=== PATIENT | male | born 1940 | race Caucasian/White ===

== ENCOUNTER 2017-11-18 15:09 | Emergency (ER) | payer MEDICARE | END 2017-11-18 16:41 | disposition home or self-care (01) | LOC: ERS 15:09 | DX: N48.89 Other specified disorders of penis (principal); E78.5 Hyperlipidemia, unspecified; F32.9 Major depressive disorder, single episode, unspecified | CPT/HCPCS: 99283 ==

== ENCOUNTER 2022-04-07 20:16 | Inpatient (IN) | payer MEDICARE ==
[2022-04-07 20:46] LABS: #Eosinphils 0.4 thou/uL (0.0-0.7); #Lymphocytes 1.2 thou/uL (1.20-3.40); #Monocytes 0.6 thou/uL (0.11-0.59); #Neutrophils 2.3 thou/uL (1.40-6.50); %Basophils 0.3 % (0.0-1.0); %Eosinophils 8.9 % (0.0-10.0); %Lymphocytes 26.6 % (21.0-51.0); %Monocytes 13.3 % (0.0-10.0); %Neutrophils 50.9 % (42.0-75.0); Hemoglobin 14.5 g/dL (14.0-18.0); Mean Corpuscular HGB CONC 32.9 g/dL (32.0-36.0); Mean Corpuscular Hemoglobin 29.8 pg (27.0-31.0); Mean Corpuscular Volume 90.5 fl (78.0-98.0); Mean Platelet Volume 7.6 fL (7.4-10.4); Platelet Count 301 10x3/uL (130-400); RBC Distribution Width 12.4 % (11.5-14.5); Red Blood Cell (RBC) Count 4.88 mill/uL (4.70-6.10); White Blood Cell (WBC) Count 4.4 10x3/uL (4.8-10.8)
[2022-04-07 21:24] LABS: ALT (SGPT) 13 U/L (8-55); AST (SGOT) 20 U/L (5-34); Albumin 4.1 g/dL (3.4-4.8); Alkaline Phosphatase 70 U/L (40-110); Anion Gap 15 mmol/L (10-20); BUN (Urea Nitrogen) 21 mg/dL (8.4-25.7); Bilirubin, Total 0.4 mg/dL (0.2-1.2); Calc. Creatinine Clearance 0 mL/min (70-130); Calcium 9.1 mg/dL (7.8-10.44); Carbon Dioxide 21 mmol/L (23-31); Chloride 105 mmol/L (98-107); Estimated GFR 87; Globulin 3.3 g/dL (2.4-3.5); Glucose 127 mg/dL (83-110); Potassium 3.9 mmol/L (3.5-5.1); Protein, Total 7.4 g/dL (5.8-8.1); Sodium 137 mmol/L (136-145)
[2022-04-07 21:27] LABS: CKMB 2.8 ng/mL (0-6.6)
[2022-04-07] MEDS ORDERED: Aspirin Chewable 81 MG TAB ONE (22:24)
[2022-04-07] MEDS ORDERED: Nitroglycerin 0.4 MG TAB (25 Tab Bottle) SL PRN (22:47)
[2022-04-07] MEDS ORDERED: Furosemide 20 MG/2 ML VIAL SLOW IVP SCH (23:00)
[2022-04-07] MEDS ORDERED: Enoxaparin Sodium 60 MG/0.6 ML SYRINGE SC SCH (23:30)
[2022-04-08 01:20] LABS: Troponin I 0.713 ng/mL (< 0.028)
[2022-04-08 04:54] LABS: Band 2 % (5-11); Eosinophils 7 % (0-10); Hemoglobin 14.4 g/dL (14.0-18.0); Lymphocytes 16 % (21-51); MDiff Complete? YES; Mean Corpuscular HGB CONC 32.5 g/dL (32.0-36.0); Mean Corpuscular Volume 92.4 fl (78.0-98.0); Mean Platelet Volume 7.4 fL (7.4-10.4); Monocytes 15 % (0-10); Neutrophil 55 % (42-75); Platelet Count 303 10x3/uL (130-400); Platelet Morphology Comment Appears Adequate; RBC Distribution Width 12.4 % (11.5-14.5); RBC Morphology Normal; Reactive Lymphocytes 5 % (0-10); White Blood Cell (WBC) Count 4.8 10x3/uL (4.8-10.8)
[2022-04-08 05:16] LABS: ALT (SGPT) 12 U/L (8-55); AST (SGOT) 23 U/L (5-34); Albumin 3.8 g/dL (3.4-4.8); Alkaline Phosphatase 66 U/L (40-110); Anion Gap 15 mmol/L (10-20); BUN (Urea Nitrogen) 18 mg/dL (8.4-25.7); Bilirubin, Total 0.4 mg/dL (0.2-1.2); Calc. Creatinine Clearance 59 mL/min (70-130); Calcium 8.6 mg/dL (7.8-10.44); Carbon Dioxide 22 mmol/L (23-31); Chloride 104 mmol/L (98-107); Estimated GFR 88; Globulin 2.9 g/dL (2.4-3.5); Glucose 95 mg/dL (83-110); Potassium 3.7 mmol/L (3.5-5.1); Protein, Total 6.7 g/dL (5.8-8.1); Sodium 137 mmol/L (136-145)
[2022-04-08 05:28] LABS: Troponin I 1.313 ng/mL (< 0.028)
[2022-04-08] MEDS ORDERED: Lisinopril 5 MG TAB PO SCH (09:00)
[2022-04-08 09:07] LABS: Critical Call Chem Troponin I RESULT DECREASING; Troponin I 1.245 ng/mL (< 0.028)
[2022-04-08] MEDS: Aspirin Chewable 81 MG TAB PO SCH (10:47)
[2022-04-08] MEDS: Famotidine 20 MG TAB PO SCH ×2 (10:47→20:04)
[2022-04-08] MEDS ORDERED: Communication Order-Pharmacy FS SCH (13:30)
[2022-04-08] MEDS ORDERED: Enoxaparin Sodium 60 MG/0.6 ML SYRINGE SC SCH ×2 (17:15→21:00)
[2022-04-08] MEDS: HYDROcodone/Acetaminophen 5/325 mg Tablet PO PRN ×2 (18:19→23:58)
[2022-04-09 07:08] LABS: Cardiac Risk 6.2 (Less than 4.5)
[2022-04-09] MEDS ORDERED: Midazolam HCl 2 mg/2 ml Vial ONE (07:52)
[2022-04-09] MEDS ORDERED: Fentanyl 100 MCG/2 ML VIAL ONE (07:52)
[2022-04-09] MEDS ORDERED: Heparin 10,000 UNITS/ 10 ML VIAL ONE (07:53)
[2022-04-09] MEDS ORDERED: Lidocaine 1% PF 5 ML VIAL ONE (07:53)
[2022-04-09] MEDS ORDERED: Verapamil 5 MG/2 ML VIAL ONE (07:53)
[2022-04-09] MEDS ORDERED: Nitroglycerin 2% Ointment 1 INCH/1 GM Packet ONE (07:53)
[2022-04-09] MEDS ORDERED: Nitroglycerin 100MG/250ML BOT 250 ML ONE (07:54)
[2022-04-09] MEDS ORDERED: Finasteride 5 MG TAB PO SCH (09:00)
[2022-04-09] MEDS ORDERED: Atorvastatin Calcium 40 MG TAB PO SCH (09:00)
[2022-04-09] MEDS ORDERED: Tamsulosin HCl 0.4 MG CAP PO SCH (09:00)
[2022-04-09] MEDS ORDERED: Lidocaine 1% (PF) 30 ML VIAL ONE (09:09)
[2022-04-09] MEDS: Aspirin Chewable 81 MG TAB PO SCH (09:36)
[2022-04-09] MEDS: Famotidine 20 MG TAB PO SCH ×2 (09:37→20:22)
[2022-04-09] MEDS ORDERED: hydrALAZINE 20 MG/ML VIAL ONE (09:44)
[2022-04-09] MEDS ORDERED: Iopamidol 370 76% 100 ML VIAL ONE (11:05)
[2022-04-09] MEDS: HYDROcodone/Acetaminophen 5/325 mg Tablet PO PRN (12:50)
[2022-04-09] MEDS ORDERED: Communication Order-Pharmacy FS SCH (17:31)
[2022-04-09] MEDS ORDERED: Diazepam 5 MG TAB PO PRN (17:31)
[2022-04-09] MEDS: Clindamycin/D5W 900 MG in Premix Bag 1 BAG IVPB SCH (22:23)
[2022-04-09] MEDS ORDERED: Acetaminophen/Codeine 30-300mg Tablet PO PRN ×2 (23:09)
[2022-04-09] MEDS ORDERED: Sodium Chloride 0.9% 200 ML IV PRN (23:09)
[2022-04-09] MEDS ORDERED: Nitroglycerin 0.4 MG TAB (25 Tab Bottle) SL PRN (23:09)
[2022-04-10] MEDS: Clindamycin/D5W 900 MG in Premix Bag 1 BAG IVPB SCH ×3 (05:22→17:38)
[2022-04-10] MEDS ORDERED: Bupivacaine HCl 0.5%/Epinephrine 1:200,000/PF 30 ml Vial ONE (06:17)
[2022-04-10] MEDS ORDERED: Dexamethasone 4 mg/ml Vial ONE (06:17)
[2022-04-10] MEDS ORDERED: Albumin 25% 100 ML ONE (06:17)
[2022-04-10] MEDS ORDERED: Midazolam HCl 5 mg/5 ml Vial ONE (06:37)
[2022-04-10] MEDS ORDERED: fentaNYL PF 100 MCG/2 ML SYRINGE ONE ×2 (06:37)
[2022-04-10] MEDS ORDERED: Phenylephrine 10 MG/ML VIAL ONE (06:37)
[2022-04-10] MEDS ORDERED: Lidocaine 1% PF 5 ML VIAL ONE (06:49)
[2022-04-10] MEDS ORDERED: Heparin 10,000 UNITS/1 ML VIAL 30,000 UNITS in Sodium Chloride 0.9% 1,000 ML FS SCH (07:00)
[2022-04-10] MEDS ORDERED: PHENYLEPHRINE-NS 100 MCG/ML 10 ML SYRINGE ONE (07:38)
[2022-04-10] MEDS ORDERED: Nitroglycerin 50 MG/250 ML BOT ONE (07:38)
[2022-04-10] MEDS ORDERED: Heparin 5,000 UNITS/ML VIAL ONE (07:38)
[2022-04-10] MEDS ORDERED: Cardioplegic Soln 1,000 ML BAG ONE (07:38)
[2022-04-10] MEDS ORDERED: Lidocaine 2% PF 100 mg/5 ml Syringe ONE (07:38)
[2022-04-10] MEDS ORDERED: Thrombin 5000 UNITS/5 ML VIAL ONE (07:38)
[2022-04-10] MEDS ORDERED: Heparin 30,000 units/30 ml VIAL ONE (07:38)
[2022-04-10] MEDS ORDERED: Calcium Chloride 1 GM/10 ML Abboject SYRINGE ONE (07:38)
[2022-04-10] MEDS ORDERED: PROPOFOL 200 MG/20 ML VIAL ONE (07:38)
[2022-04-10] MEDS ORDERED: Rocuronium Bromide 10 MG/ML (10ML VIAL) ONE (07:38)
[2022-04-10] MEDS ORDERED: Protamine Sulfate 250 MG/25 ML VIAL ONE (07:38)
[2022-04-10] MEDS ORDERED: Mannitol 12.5 GM/50 ML ONE (07:38)
[2022-04-10] MEDS ORDERED: Aminocaproic Acid 5 GM/20 ML VIAL ONE (07:38)
[2022-04-10] MEDS ORDERED: Sodium Bicarb 50 MEQ/50 ML Abboject 8.4% SYRINGE ONE (07:38)
[2022-04-10] MEDS ORDERED: Papaverine 60 MG/2 ML VIAL ONE (07:38)
[2022-04-10] MEDS ORDERED: Ketorolac Tromethamine 30 MG/ML VIAL ONE (07:38)
[2022-04-10] MEDS ORDERED: Magnesium Sulfate 1 GM/2 ML VIAL ONE (07:38)
[2022-04-10] MEDS ORDERED: FENTANYL 50 MCG/ML 1 ML VIAL SLOW IVP PRN ×2 (10:47)
[2022-04-10] MEDS ORDERED: Bisacodyl 10 MG SUPP PR PRN (10:47)
[2022-04-10] MEDS ORDERED: Post-Op Insulin Drip Protocol IVPB ONE (10:47)
[2022-04-10] MEDS ORDERED: Promethazine HCl 25 MG/ML VIAL IM PRN (10:47)
[2022-04-10] MEDS ORDERED: Morphine 2 MG/ML VIAL SLOW IVP PRN (10:47)
[2022-04-10] MEDS ORDERED: Hetastarch 6% 500 ML 500 ML IVPB PRN (10:47)
[2022-04-10] MEDS ORDERED: hydrALAZINE 20 MG/ML VIAL SLOW IVP PRN (10:47)
[2022-04-10] MEDS ORDERED: niCARdipine 25 MG in Sodium Chloride 0.9% 250 ML 250 ML IVPB PRN (10:47)
[2022-04-10] MEDS ORDERED: Acetaminophen 325 MG TAB PO PRN (10:47)
[2022-04-10] MEDS ORDERED: NOREPINEPHRINE 8 MG/250 ML-D5W 250 ML IVPB PRN (10:47)
[2022-04-10] MEDS ORDERED: Bisacodyl 5 MG TAB PO PRN (10:47)
[2022-04-10] MEDS ORDERED: traMADol HCl 50 MG TAB PO PRN (10:47)
[2022-04-10] MEDS ORDERED: Mag-Al 1200 mg/1200 mg/30 ML UDCUP PO PRN (10:47)
[2022-04-10] MEDS ORDERED: Dextrose 5% in Water 1,000 ML IV PRN (11:00)
[2022-04-10] MEDS ORDERED: Dextrose 50% Abboject 50 ML SYRINGE SLOW IVP PRN (11:00)
[2022-04-10] MEDS: Lactated Ringer's 1,000 ML IV SCH (11:00)
[2022-04-10] MEDS ORDERED: HUMULIN R 100 UNITS in Sodium Chloride 0.9% 100 ML IVPB SCH (11:00)
[2022-04-10] MEDS ORDERED: Insulin Regular 300 UNITS/3 ML VIAL SC PRN (11:00)
[2022-04-10 11:04] LABS: Actual Bicarbonate (HCO3a) 21.4 mEq/L (22-28); CO2 Tension 36.2 mmHg (35.0-45.0); Calcium, Ionized (arterial) 1.11 mmol/L (1.12-1.30); Carboxyhemoglobin (COHb) 0.6 gm% (0.0-3.0); Hemoglobin (Hb) 12.9 g/dL (14.0-18.0); O2 Tension (PaO2), arterial 141.8 mmHg (> 60.0); Potassium - ABG Lab 3.77 mmol/L (3.70-5.30); Puncture Site Arterial Line; pH, Arterial 7.39 (7.35-7.45)
[2022-04-10 11:04] LABS: #Eosinphils 0.2 thou/uL (0.0-0.7); #Lymphocytes 1.2 thou/uL (1.20-3.40); #Monocytes 0.8 thou/uL (0.11-0.59); #Neutrophils 11.7 thou/uL (1.40-6.50); %Basophils 0.1 % (0.0-1.0); %Eosinophils 1.1 % (0.0-10.0); %Lymphocytes 8.8 % (21.0-51.0); %Monocytes 5.7 % (0.0-10.0); %Neutrophils 84.2 % (42.0-75.0); Hemoglobin 12.1 g/dL (14.0-18.0); Mean Corpuscular HGB CONC 32.5 g/dL (32.0-36.0); Mean Corpuscular Hemoglobin 30.1 pg (27.0-31.0); Mean Corpuscular Volume 92.7 fl (78.0-98.0); Mean Platelet Volume 7.2 fL (7.4-10.4); Platelet Count 229 10x3/uL (130-400); RBC Distribution Width 12.4 % (11.5-14.5); Red Blood Cell (RBC) Count 4.03 mill/uL (4.70-6.10); White Blood Cell (WBC) Count 13.9 10x3/uL (4.8-10.8)
[2022-04-10 11:20] LABS: INR-International Normal Ratio 1.4; PTT 33.7 sec (22.9-36.1); Prothrombin Time 17.5 sec (12.0-14.7)
[2022-04-10 11:23] LABS: Anion Gap 14 mmol/L (10-20); BUN (Urea Nitrogen) 20 mg/dL (8.4-25.7); Calc. Creatinine Clearance 56 mL/min (70-130); Calcium 8.1 mg/dL (7.8-10.44); Carbon Dioxide 21 mmol/L (23-31); Chloride 108 mmol/L (98-107); Estimated GFR 87; Glucose 169 mg/dL (83-110); Potassium 3.9 mmol/L (3.5-5.1); Sodium 139 mmol/L (136-145)
[2022-04-10] MEDS: Ketorolac Tromethamine 30 MG/ML VIAL IVP SCH ×2 (11:47→17:38)
[2022-04-10] MEDS: Potassium Chloride 20 MEQ/100 ML PREMIX BAG IVPB PRN (11:55)
[2022-04-10 13:15] LABS: Actual Bicarbonate (HCO3a) 20.7 mEq/L (22-28); CO2 Tension 26.7 mmHg (35.0-45.0); Calcium, Ionized (arterial) 1.11 mmol/L (1.12-1.30); Carboxyhemoglobin (COHb) 1.1 gm% (0.0-3.0); Hemoglobin (Hb) 13.3 g/dL (14.0-18.0); Potassium - ABG Lab 4.18 mmol/L (3.70-5.30); pH, Arterial 7.51 (7.35-7.45)
[2022-04-10 13:16] LABS: ALV-art Gradient 89.825 mmHg (0-20); Puncture Site Arterial Line
[2022-04-10 15:30] LABS: Hemoglobin 12.6 g/dL (14.0-18.0)
[2022-04-10 16:01] LABS: Potassium 4.4 mmol/L (3.5-5.1)
[2022-04-10] MEDS: Famotidine/PF 20 mg/2ml Vial SLOW IVP SCH (20:16)
[2022-04-10] MEDS: traMADol HCl 50 MG TAB PO PRN (20:16)
[2022-04-10] MEDS: Atorvastatin Calcium 20 MG TAB PO SCH (20:17)
[2022-04-11] MEDS: Clindamycin/D5W 900 MG in Premix Bag 1 BAG IVPB SCH ×2 (00:05→05:10)
[2022-04-11] MEDS: Ketorolac Tromethamine 30 MG/ML VIAL IVP SCH ×5 (00:06→23:35)
[2022-04-11 04:51] LABS: #Lymphocytes 0.7 thou/uL (1.20-3.40); #Monocytes 1.3 thou/uL (0.11-0.59); #Neutrophils 6.8 thou/uL (1.40-6.50); %Basophils 0.3 % (0.0-1.0); %Eosinophils 0.3 % (0.0-10.0); %Lymphocytes 7.8 % (21.0-51.0); %Monocytes 14.9 % (0.0-10.0); %Neutrophils 76.7 % (42.0-75.0); Hemoglobin 12.4 g/dL (14.0-18.0); Mean Corpuscular Hemoglobin 30.7 pg (27.0-31.0); Mean Platelet Volume 7.8 fL (7.4-10.4); Platelet Count 258 10x3/uL (130-400); RBC Distribution Width 12.3 % (11.5-14.5); Red Blood Cell (RBC) Count 4.03 mill/uL (4.70-6.10); White Blood Cell (WBC) Count 8.9 10x3/uL (4.8-10.8)
[2022-04-11] MEDS: traMADol HCl 50 MG TAB PO PRN (05:11)
[2022-04-11 05:17] LABS: Anion Gap 12 mmol/L (10-20); BUN (Urea Nitrogen) 24 mg/dL (8.4-25.7); Calc. Creatinine Clearance 57 mL/min (70-130); Carbon Dioxide 22 mmol/L (23-31); Chloride 108 mmol/L (98-107); Estimated GFR 87; Glucose 109 mg/dL (83-110); Potassium 4.2 mmol/L (3.5-5.1); Sodium 138 mmol/L (136-145)
[2022-04-11] MEDS: Aspirin 325 MG TAB PO SCH (08:18)
[2022-04-11] MEDS: Famotidine/PF 20 mg/2ml Vial SLOW IVP SCH ×2 (08:18→20:08)
[2022-04-11] MEDS: Magnesium 2 GM/50 ML(in water) 2 GM in Premix Bag 1 BAG IVPB SCH (08:18)
[2022-04-11] MEDS: Lactated Ringer's 1,000 ML IV SCH (08:25)
[2022-04-11] MEDS ORDERED: Insulin Glargine 30 UNITS/0.3 ML VIAL SC PRN (10:54)
[2022-04-11] MEDS ORDERED: Albumin 25% 25 GM/100 ML BOT IVPB SCH ×2 (11:00→13:30)
[2022-04-11] MEDS: Amiodarone 150 MG, Admixture Fee 1 EACH in Dextrose 5% in Water 100 ML IVPB SCH ×2 (16:12→19:28)
[2022-04-11] MEDS: Amiodarone 450 MG, Admixture Fee 1 EACH in Dextrose 5% in Water 250 ML IVPB SCH (19:28)
[2022-04-11] MEDS: Atorvastatin Calcium 20 MG TAB PO SCH (20:08)
[2022-04-11] MEDS: Ondansetron PF 4 MG/2 ML Vial IVP PRN (23:35)
[2022-04-11] MEDS: Guaifenesin DM 100-10/5 ML UDCUP PO PRN (23:37)
[2022-04-12 04:32] LABS: #Lymphocytes 0.7 thou/uL (1.20-3.40); #Neutrophils 5.5 thou/uL (1.40-6.50); %Basophils 0.2 % (0.0-1.0); %Eosinophils 0.7 % (0.0-10.0); %Lymphocytes 9.5 % (21.0-51.0); %Monocytes 13.6 % (0.0-10.0); %Neutrophils 76.1 % (42.0-75.0); Hemoglobin 10.4 g/dL (14.0-18.0); Mean Corpuscular HGB CONC 31.9 g/dL (32.0-36.0); Mean Corpuscular Hemoglobin 29.6 pg (27.0-31.0); Mean Corpuscular Volume 92.8 fl (78.0-98.0); Mean Platelet Volume 8.1 fL (7.4-10.4); Platelet Count 220 10x3/uL (130-400); RBC Distribution Width 12.2 % (11.5-14.5); White Blood Cell (WBC) Count 7.2 10x3/uL (4.8-10.8)
[2022-04-12 04:54] LABS: Anion Gap 11 mmol/L (10-20); BUN (Urea Nitrogen) 33 mg/dL (8.4-25.7); Calc. Creatinine Clearance 47 mL/min (70-130); Calcium 7.9 mg/dL (7.8-10.44); Carbon Dioxide 24 mmol/L (23-31); Chloride 102 mmol/L (98-107); Estimated GFR 74; Glucose 108 mg/dL (83-110); Potassium 3.9 mmol/L (3.5-5.1); Sodium 133 mmol/L (136-145)
[2022-04-12] MEDS: Potassium Chloride 20 MEQ/100 ML PREMIX BAG IVPB PRN (05:06)
[2022-04-12] MEDS: Ketorolac Tromethamine 30 MG/ML VIAL IVP SCH ×3 (05:06→17:43)
[2022-04-12] MEDS: Amiodarone 450 MG, Admixture Fee 1 EACH in Dextrose 5% in Water 250 ML IVPB SCH ×2 (05:12→16:20)
[2022-04-12] MEDS: Aspirin 325 MG TAB PO SCH (07:43)
[2022-04-12] MEDS: Famotidine/PF 20 mg/2ml Vial SLOW IVP SCH (07:43)
[2022-04-12] MEDS: Magnesium 2 GM/50 ML(in water) 2 GM in Premix Bag 1 BAG IVPB SCH (07:43)
[2022-04-12] MEDS ORDERED: Mineral Oil ENEMA PR PRN (14:57)
[2022-04-12] MEDS ORDERED: Zolpidem Tartrate 5 MG TAB PO PRN (14:57)
[2022-04-12] MEDS ORDERED: diphenhydrAMINE 25 MG CAP PO PRN (14:57)
[2022-04-12] MEDS ORDERED: Bisacodyl 10 MG SUPP PR PRN (14:57)
[2022-04-12] MEDS ORDERED: Milk Of Magnesia 30 ML UDCUP PO PRN (14:57)
[2022-04-12] MEDS ORDERED: Nitroglycerin 0.4 MG TAB (25 Tab Bottle) SL PRN (14:57)
[2022-04-12] MEDS ORDERED: Mag-Al 1200 mg/1200 mg/30 ML UDCUP PO PRN (14:57)
[2022-04-12] MEDS ORDERED: Bisacodyl 5 MG TAB PO PRN (14:57)
[2022-04-12] MEDS ORDERED: Guaifenesin DM 100-10/5 ML UDCUP PO PRN (14:57)
[2022-04-12] MEDS ORDERED: FENTANYL 50 MCG/ML 1 ML VIAL SLOW IVP PRN (15:26)
[2022-04-12] MEDS ORDERED: Docusate 100 MG CAP PO PRN (19:35)
[2022-04-12] MEDS: Atorvastatin Calcium 20 MG TAB PO SCH (20:33)
[2022-04-12] MEDS: traMADol HCl 50 MG TAB PO PRN (20:33)
[2022-04-13] MEDS: Guaifenesin DM 100-10/5 ML UDCUP PO PRN
[2022-04-13] MEDS: Ketorolac Tromethamine 30 MG/ML VIAL IVP SCH ×3 (06:31→11:22)
[2022-04-13] MEDS: Aspirin 325 MG TAB PO SCH (08:31)
[2022-04-13] MEDS: Potassium Chloride 20 MEQ/100 ML PREMIX BAG IVPB PRN (08:31)
[2022-04-13] MEDS: Amiodarone 450 MG, Admixture Fee 1 EACH in Dextrose 5% in Water 250 ML IVPB SCH (08:34)
[2022-04-13] MEDS ORDERED: Aspirin 325 mg Enteric Coated Tablet PO SCH (09:00)
[2022-04-13] MEDS ORDERED: Tamsulosin HCl 0.4 MG CAP PO SCH (16:15)
[2022-04-13] MEDS: traMADol HCl 50 MG TAB PO PRN (18:06)
[2022-04-13] MEDS: Ondansetron PF 4 MG/2 ML Vial IVP PRN (20:08)
[2022-04-13] MEDS: Metoprolol Tartrate 25 MG TAB PO SCH (22:30)
[2022-04-13] MEDS: Atorvastatin Calcium 20 MG TAB PO SCH (22:31)
[2022-04-13] MEDS: Amiodarone 200 MG TAB PO SCH (22:31)
[2022-04-14] MEDS: Amiodarone 200 MG TAB PO SCH ×3 (09:20→20:47)
[2022-04-14] MEDS: Aspirin 325 MG TAB PO SCH (09:20)
[2022-04-14] MEDS: Metoprolol Tartrate 25 MG TAB PO SCH ×2 (09:20→20:47)
[2022-04-14 15:13] LABS: Actual Bicarbonate (HCO3a) 20.1 mEq/L (22-28); Analyzer IN Cardio OR; Base Excess (BEa) -2.7 mEq/L (-2.0 to +3.0); CO2 Tension 29.6 mmHg (35.0-45.0); Calcium, Ionized (arterial) 1.06 mmol/L (1.12-1.30); Carboxyhemoglobin (COHb) 1.1 gm% (0.0-3.0); Hemoglobin (Hb) 13.4 g/dL (14.0-18.0); O2 Tension (PaO2), arterial 380.2 mmHg (> 60.0); Potassium - ABG Lab 3.89 mmol/L (3.70-5.30); pH, Arterial 7.45 (7.35-7.45)
[2022-04-14 15:13] LABS: Actual Bicarbonate (HCO3a) 20.2 mEq/L (22-28); Analyzer IN Cardio OR; Base Excess (BEa) -3.6 mEq/L (-2.0 to +3.0); CO2 Tension 32.5 mmHg (35.0-45.0); Calcium, Ionized (arterial) 1.04 mmol/L (1.12-1.30); Carboxyhemoglobin (COHb) 0.5 gm% (0.0-3.0); Hemoglobin (Hb) 12.8 g/dL (14.0-18.0); O2 Tension (PaO2), arterial 415.9 mmHg (> 60.0); Potassium - ABG Lab 3.98 mmol/L (3.70-5.30); pH, Arterial 7.41 (7.35-7.45)
[2022-04-14 15:14] LABS: Puncture Site Arterial Line
[2022-04-14 15:14] LABS: Actual Bicarbonate (HCO3a) 20.2 mEq/L (22-28); Analyzer IN Cardio OR; Base Excess (BEa) -3.8 mEq/L (-2.0 to +3.0); Carboxyhemoglobin (COHb) 0.2 gm% (0.0-3.0); O2 Tension (PaO2), arterial 568.9 mmHg (> 60.0); Potassium - ABG Lab 3.98 mmol/L (3.70-5.30); pH, Arterial 7.41 (7.35-7.45)
[2022-04-14 15:14] LABS: Actual Bicarbonate (HCO3a) 26.7 mEq/L (22-28); Analyzer IN Cardio OR; Base Excess (BEa) 2.2 mEq/L (-2.0 to +3.0); CO2 Tension 40.7 mmHg (35.0-45.0); Calcium, Ionized (arterial) 0.96 mmol/L (1.12-1.30); Carboxyhemoglobin (COHb) 0.3 gm% (0.0-3.0); Hemoglobin (Hb) 9.7 g/dL (14.0-18.0); O2 Tension (PaO2), arterial 353.5 mmHg (> 60.0); Potassium - ABG Lab 4.28 mmol/L (3.70-5.30); pH, Arterial 7.43 (7.35-7.45)
[2022-04-14 15:14] LABS: Analyzer IN Cardio OR; Base Excess (BEa) -1.3 mEq/L (-2.0 to +3.0); CO2 Tension 36.8 mmHg (35.0-45.0); Calcium, Ionized (arterial) 1.17 mmol/L (1.12-1.30); Carboxyhemoglobin (COHb) 0.3 gm% (0.0-3.0); Hemoglobin (Hb) 10.1 g/dL (14.0-18.0); O2 Tension (PaO2), arterial 293.6 mmHg (> 60.0); pH, Arterial 7.41 (7.35-7.45)
[2022-04-14 15:15] LABS: Puncture Site Arterial Line
[2022-04-14 15:15] LABS: Puncture Site Arterial Line
[2022-04-14 15:15] LABS: Puncture Site Arterial Line
[2022-04-14 15:16] LABS: Puncture Site Arterial Line
[2022-04-14] MEDS: traMADol HCl 50 MG TAB PO PRN (20:50)
[2022-04-14] MEDS: Guaifenesin DM 100-10/5 ML UDCUP PO PRN (20:51)
[2022-04-14] MEDS ORDERED: Atorvastatin Calcium 40 MG TAB PO SCH (21:00)
[2022-04-14] MEDS ORDERED: Tamsulosin HCl 0.4 MG CAP PO SCH (21:00)
[2022-04-15 04:30] LABS: Hemoglobin 10.2 g/dL (14.0-18.0); Mean Corpuscular HGB CONC 32.1 g/dL (32.0-36.0); Mean Corpuscular Hemoglobin 29.8 pg (27.0-31.0); Mean Corpuscular Volume 92.8 fl (78.0-98.0); Mean Platelet Volume 7.8 fL (7.4-10.4); Platelet Count 314 10x3/uL (130-400); RBC Distribution Width 11.8 % (11.5-14.5); Red Blood Cell (RBC) Count 3.42 mill/uL (4.70-6.10); White Blood Cell (WBC) Count 5.7 10x3/uL (4.8-10.8)
[2022-04-15 04:49] LABS: Anion Gap 10 mmol/L (10-20); BUN (Urea Nitrogen) 24 mg/dL (8.4-25.7); Calc. Creatinine Clearance 53 mL/min (70-130); Carbon Dioxide 26 mmol/L (23-31); Chloride 102 mmol/L (98-107); Potassium 4.6 mmol/L (3.5-5.1); Sodium 133 mmol/L (136-145)
[2022-04-15 04:50] LABS: Calcium 8.1 mg/dL (7.8-10.44); Estimated GFR 84; Glucose 96 mg/dL (83-110)
[2022-04-15] MEDS: Aspirin 325 MG TAB PO SCH (09:00)
[2022-04-15] MEDS: Amiodarone 200 MG TAB PO SCH ×2 (09:00→15:58)
[2022-04-15] MEDS: Metoprolol Tartrate 25 MG TAB PO SCH (09:00)
[2022-04-15] MEDS: traMADol HCl 50 MG TAB PO PRN (12:51)
[2022-04-15 13:39] VITALS: BMI 19.9
[2022-04-15 16:29] VITALS: BP 111/63; TEMP 98.8
== END 2022-04-15 16:45 | disposition home or self-care (01) | DRG 234 ==
LOC: ERS 20:16 → NEURO 22:36 → CCU 04-10 06:28 → 2NO 04-13 16:32
PROVIDERS: ADMIT Student in an Organized Health Care Education/Training Program; ATTEND Internal Medicine
PROC: 4A023N7 Measurement of Cardiac Sampling and Pressure, Left Heart, Percutaneous Approach (ICD-10-PCS; principal; 2022-04-09)
PROC: B2111ZZ Fluoroscopy of Multiple Coronary Arteries using Low Osmolar Contrast (ICD-10-PCS; 2022-04-09)
PROC: B2151ZZ Fluoroscopy of Left Heart using Low Osmolar Contrast (ICD-10-PCS; 2022-04-09)
PROC: 02100Z9 Bypass Coronary Artery, One Artery from Left Internal Mammary, Open Approach (ICD-10-PCS; 2022-04-10)
PROC: 021109W Bypass Coronary Artery, Two Arteries from Aorta with Autologous Venous Tissue, Open Approach (ICD-10-PCS; 2022-04-10)
PROC: 06BP4ZZ Excision of Right Saphenous Vein, Percutaneous Endoscopic Approach (ICD-10-PCS; 2022-04-10)
PROC: 5A1221Z Performance of Cardiac Output, Continuous (ICD-10-PCS; 2022-04-10)
PROC: 02L70CK Occlusion of Left Atrial Appendage with Extraluminal Device, Open Approach (ICD-10-PCS; 2022-04-10)
DX: I21.4 Non-ST elevation (NSTEMI) myocardial infarction (principal); E44.1 Mild protein-calorie malnutrition; E87.1 Hypo-osmolality and hyponatremia; I13.0 Hypertensive heart and chronic kidney disease with heart failure and stage 1 through stage 4 chronic kidney disease, or unspecified chronic kidney disease; Z68.1 Body mass index [BMI] 19.9 or less, adult; I48.92 Unspecified atrial flutter; I50.9 Heart failure, unspecified; Z20.822 Contact with and (suspected) exposure to COVID-19; E78.00 Pure hypercholesterolemia, unspecified; I44.0 Atrioventricular block, first degree; I45.10 Unspecified right bundle-branch block; N18.2 Chronic kidney disease, stage 2 (mild); E87.6 Hypokalemia; E83.42 Hypomagnesemia; I25.10 Atherosclerotic heart disease of native coronary artery without angina pectoris; I48.0 Paroxysmal atrial fibrillation; N40.1 Benign prostatic hyperplasia with lower urinary tract symptoms; R33.8 Other retention of urine; M10.9 Gout, unspecified; F32.A Depression, unspecified; Z85.828 Personal history of other malignant neoplasm of skin; Z82.49 Family history of ischemic heart disease and other diseases of the circulatory system; Z88.0 Allergy status to penicillin; Z86.73 Personal history of transient ischemic attack (TIA), and cerebral infarction without residual deficits; Z80.9 Family history of malignant neoplasm, unspecified; Z79.899 Other long term (current) drug therapy
CPT/HCPCS: 36415; 36416; 36430; 71045; 80048; 80053; 80061; 82553; 82805; 83735; 83880; 84443; 84484; 85025; 85027; 85610; 85730; 86850; 86900; 86901; 87811; 93005; 93010; 93306; 93458; 93798; 94002; 94150; 94760; 99152; C1751; C1769; C1776; C1887; C1894; J0282; J0360; J1100; J1642; J1644; J1650; J1815; J1885; J1940; J1956; J2001; J2150; J2250; J2370; J2405; J2440; J2704; J2720; J3010; J3370; J3475; J3480; J3490; J7070; J7120; P9047; Q9967; S0017; S0028; U0003; U0005

== ENCOUNTER 2022-09-12 11:44 | Outpatient (CLI) | payer MEDICARE ==
[2022-09-12 13:19] LABS: Hemoglobin 13.2 g/dL (13.5-17.5); Mean Corpuscular Hemoglobin 27.7 pg (27.0-33.0); Mean Corpuscular Volume 86.6 fl (81.2-95.1); Mean Platelet Volume 10.4 fl (7.4-10.4); Platelet Count 304 10x3/uL (150-450); RBC Distribution Width 16.5 % (11.5-14.5); Red Blood Cell (RBC) Count 4.76 10x6/uL (4.32-5.72); White Blood Cell (WBC) Count 5.2 10x3/uL (3.5-10.5)
[2022-09-12 13:27] LABS: PTT 28.7 sec (22.0-33.0); Prothrombin Time 11.2 sec (9.5-12.1)
[2022-09-12 13:39] LABS: Anion Gap 13 mmol/L (10-20); BUN (Urea Nitrogen) 28 mg/dL (8.4-25.7); Calc. Creatinine Clearance 0 mL/min (70-130); Calcium 8.7 mg/dL (7.8-10.44); Carbon Dioxide 26 mmol/L (23-31); Chloride 106 mmol/L (98-107); Estimated GFR 66; Glucose 82 mg/dL (83-110); Potassium 4.2 mmol/L (3.5-5.1); Sodium 141 mmol/L (136-145)
== END 2022-09-12 11:45 | disposition home or self-care (01) ==
LOC: LABBT 11:44
PROVIDERS: ATTEND Family Medicine
DX: Z01.818 Encounter for other preprocedural examination (principal); R33.9 Retention of urine, unspecified; N40.1 Benign prostatic hyperplasia with lower urinary tract symptoms; C44.310 Basal cell carcinoma of skin of unspecified parts of face; I25.10 Atherosclerotic heart disease of native coronary artery without angina pectoris; R39.12 Poor urinary stream; F33.2 Major depressive disorder, recurrent severe without psychotic features; I48.0 Paroxysmal atrial fibrillation
CPT/HCPCS: 80048; 85027; 85610; 85730; 93005; 93010

== ENCOUNTER 2022-09-25 07:26 | Observation (INO) | payer MEDICARE ==
[2022-09-24 15:43] VITALS: BMI 18.4
[2022-09-25] MEDS ORDERED: fentaNYL 50 mcg/mL 1 mL Vial ONE (10:46)
[2022-09-25] MEDS ORDERED: Levofloxacin 500 mg/D5W 100 ml Premix Bag ONE (10:48)
[2022-09-25] MEDS ORDERED: PROPOFOL 200 MG/20 ML VIAL ONE (11:05)
[2022-09-25] MEDS ORDERED: Lidocaine 1% PF 5 ML VIAL ONE (11:05)
[2022-09-25] MEDS ORDERED: ePHEDrine Sulfate 50 MG/10 ML VIAL ONE (11:05)
[2022-09-25] MEDS ORDERED: Ondansetron PF 4 MG/2 ML Vial ONE (11:05)
[2022-09-25] MEDS ORDERED: Glycopyrrolate 0.2 MG/ML 5 ML SYRINGE ONE (11:05)
[2022-09-25] MEDS ORDERED: Bisacodyl 10 MG SUPP PR PRN (12:53)
[2022-09-25] MEDS ORDERED: Morphine 2 MG/ML VIAL SLOW IVP PRN (12:53)
[2022-09-25] MEDS ORDERED: diphenhydrAMINE 25 MG CAP PO PRN (12:53)
[2022-09-25] MEDS ORDERED: Hyoscyamine SL 0.125 MG TAB SL PRN (12:53)
[2022-09-25] MEDS ORDERED: Acetaminophen 500 MG TAB PO PRN (12:53)
[2022-09-25] MEDS ORDERED: Mag-Al 1200 mg/1200 mg/30 ML UDCUP PO PRN (12:53)
[2022-09-25] MEDS ORDERED: hydrALAZINE 20 MG/ML VIAL SLOW IVP PRN (12:53)
[2022-09-25] MEDS ORDERED: Phenazopyridine HCl 95 MG TAB PO PRN (12:53)
[2022-09-25] MEDS ORDERED: Oxybutynin 5 MG TAB PO PRN (12:53)
[2022-09-25] MEDS ORDERED: traMADol HCl 50 MG TAB PO PRN (12:56)
[2022-09-25] MEDS: Metoprolol Tartrate 25 MG TAB PO SCH (20:58)
[2022-09-25] MEDS: Docusate 100 MG CAP PO SCH (21:00)
[2022-09-25] MEDS ORDERED: Atorvastatin Calcium 40 MG TAB PO SCH (21:00)
[2022-09-26 05:49] LABS: Anion Gap 13 mmol/L (10-20); BUN (Urea Nitrogen) 12 mg/dL (8.4-25.7); Calc. Creatinine Clearance 42 mL/min (70-130); Calcium 7.9 mg/dL (7.8-10.44); Carbon Dioxide 22 mmol/L (23-31); Chloride 106 mmol/L (98-107); Estimated GFR 68; Glucose 94 mg/dL (83-110); Potassium 3.9 mmol/L (3.5-5.1); Sodium 137 mmol/L (136-145)
[2022-09-26] MEDS: Metoprolol Tartrate 25 MG TAB PO SCH (08:40)
[2022-09-26] MEDS: Docusate 100 MG CAP PO SCH (08:40)
[2022-09-26] MEDS ORDERED: Amiodarone 200 MG TAB PO SCH (09:00)
[2022-09-26 15:31] VITALS: BP 120/74; TEMP 98.5
== END 2022-09-26 17:50 | disposition home or self-care (01) ==
LOC: SDC 07:26 → SURG B 15:22
PROVIDERS: ADMIT Urology; ATTEND Urology
PROC: 0VT08ZZ Resection of Prostate, Via Natural or Artificial Opening Endoscopic (ICD-10-PCS; principal; 2022-09-25)
DX: N40.1 Benign prostatic hyperplasia with lower urinary tract symptoms (principal); R33.8 Other retention of urine; N13.8 Other obstructive and reflux uropathy; I10 Essential (primary) hypertension; I25.2 Old myocardial infarction; R00.1 Bradycardia, unspecified; I95.9 Hypotension, unspecified; Z86.73 Personal history of transient ischemic attack (TIA), and cerebral infarction without residual deficits; Z79.899 Other long term (current) drug therapy; Z88.0 Allergy status to penicillin; Z95.1 Presence of aortocoronary bypass graft
CPT/HCPCS: 52601; 80048; J3010; 36415; 88305; J1956; J2405; J2704